=== PATIENT | female | born 1985 | race Caucasian/White ===

== ENCOUNTER 2024-08-09 09:51 | Emergency (ER) | payer BC, SELFPAY ==
[2024-08-09 10:08] VITALS: BP 108/94; PULSE 86; RESP 14; TEMP 36.7; O2SAT 99
--- NOTE | 2024-08-09 10:31 | ED_ITS ---
HPI - Ear Problem General Chief complaint: Ear Stated complaint: left ear pain,drainage,GONZALEZ Time Seen by Provider: 08/09/24 10:40 Source: patient and RN notes reviewed Mode of arrival: ambulatory Limitations: no limitations History of Present Illness HPI Narrative: 39-year-old female presents concern for two-month history of left ear pain, nasal congestion, drainage. Reports she is taking Claritin without relief. MD Complaint: ear pain Related Data Home Medications ?Medication ?Instructions ?Recorded ?Confirmed ?Last Taken ?Type albuterol sulfate 90 mcg/actuation inhalation 08/09/24 Unknown History aerosol inhaler aspirin 81 mg tablet,delayed mg 08/09/24 Unknown History release budesonide-formoterol HFA 160 inhalation 08/09/24 Unknown History mcg-4.5 mcg/actuation aerosol inhaler (Symbicort) irbesartan 150 tablet 08/09/24 Unknown History mg-hydrochlorothiazide 12.5 mg tablet norethindrone (contraceptive) 0.35 mg 08/09/24 Unknown History mg tablet rosuvastatin 10 mg tablet mg 08/09/24 Unknown History Allergies Allergy/AdvReac Type Severity Reaction Status Date / Time Sulfa (Sulfonamide Allergy Unknown Unknown Verified 08/09/24 10:11 Antibiotics) Review of Systems Review of Systems: CONSTITUTIONAL: Denies malaise, chills, sweats, or fever. EYES: Denies visual changes, redness, or discharge. ENT: Reports rhinorrhea, congestion, ear pain CARDIOVASCULAR: Denies chest pain, palpitations, or edema. RESPIRATORY: Denies cough. Denies dyspnea. GASTROINTESTINAL: Denies abdominal pain, nausea, vomiting, diarrhea SKIN: Denies rash or itching. MUSCULOSKELETAL: Denies myalgia. NEUROLOGIC: Denies headache. All systems reviewed & are unremarkable except as noted in HPI and below PMFSH Comments At time of signature, agree with nursing past medical, surgical, social and family history. There is no relevant family history pertinent to the presenting complaint Exam Narrative: GENERAL: Well-appearing, well-nourished, and in no acute distress. HEAD: Normocephalic EYES: PERRLA, conjunctivae clear ENT: Nares clear, turbinates edematous. Mucous membranes moist. TM pearly kelsey with dull light reflex bilaterally; no tragal tenderness. Oropharynx not bimal thematous without lesions. Tonsils not enlarged and without exudate, no drooling, no hoarseness, no trismus, uvula midline. NECK: Supple. No lymphadenopathy CHEST: Clear to auscultation, breath sounds equal. No wheezing, rhonchi, rales, or stridor. No respiratory distress, speaks in full sentences. HEART: Regular rate and rhythm. No murmur heard. SKIN: Warm, dry, no rash. NEURO: Alert and oriented x3. PSYCH: Normal mood and affect Course Course Emergency Course: Patient is aware of diagnosis, understands and agrees to treatment plan. Anticipatory guidance given. Patient agrees to follow-up as directed and is aware of reasons to seek care at the emergency department. Portions of this record may have been created with voice recognition software Level of Care: [facility] Visit Vital Signs Vital signs: Vital Signs Temperature 98.1 F 08/09/24 10:08 Pulse Rate 86 08/09/24 10:08 Respiratory Rate 14 08/09/24 10:08 Blood Pressure 108/94 H 08/09/24 10:08 Pulse Oximetry 99 08/09/24 10:08 Oxygen Delivery Room Air 08/09/24 10:08 Temperature 98.1 F 08/09/24 10:08 Pulse Rate 86 08/09/24 10:08 Respiratory Rate 14 08/09/24 10:08 Blood Pressure 108/94 H 08/09/24 10:08 Pulse Oximetry 99 08/09/24 10:08 Oxygen Delivery Room Air 08/09/24 10:08 Reviewed. Medical Decision Making MDM Narrative Medical decision making narrative: [facility]. History is obtained from patient who is an independent historian and physical exam was performed.? Available medical records were reviewed. ? Exam findings and relevant testing show no acute concerns or changes; patient is non-toxic appearing and is in no distress. Differential diagnosis considered: Villa virus, strep pharyngitis, allergic rhinitis, upper respiratory tract infection, sinusitis, rhinosinusitis, nasopharyngitis. viral pharyngitis, otitis media, otitis externa, otitis effusion, cerumen impaction, foreign body. Exam findings show no acute concerns or changes; patient is non-toxic appearing and is in no distress. Patient is appropriate for outpatient treatment and follow-up. ? Differential diagnosis and treatment plan were discussed with the patient. Patient agrees with discussion and after shared medical decision making agrees with plan of care. All questions were answered to the patient's satisfaction. Patient is appropriate for outpatient treatment and follow-up. Vital Signs Vital Signs: Vital Signs Temperature 98.1 F 08/09/24 10:08 Pulse Rate 86 08/09/24 10:08 Respiratory Rate 14 08/09/24 10:08 Blood Pressure 108/94 H 08/09/24 10:08 Pulse Oximetry 99 08/09/24 10:08 Oxygen Delivery Room Air 08/09/24 10:08 Temperature 98.1 F 08/09/24 10:08 Pulse Rate 86 08/09/24 10:08 Respiratory Rate 14 08/09/24 10:08 Blood Pressure 108/94 H 08/09/24 10:08 Pulse Oximetry 99 08/09/24 10:08 Oxygen Delivery Room Air 08/09/24 10:08 Critical Care Time Critical Care Time Critical Care Time: No Discharge Plan Discharge Clinical Impression: Sinusitis Patient Disposition: Home Condition: Stable Instructions: Antibiotic Form, Sinusitis (ED) Additional Instructions: Symptomatic treatment of a sinus infection aims to relieve symptoms. These treatments do not shorten the duration of illness. Nonprescription pain medications, such as acetaminophen (eg, Tylenol) or ibuprofen (eg, Motrin, Advil), are recommended for pain. Flushing the nose and sinuses with a saline solution several times per day has been proven to decrease pain associated with congestion and shorten the duration of symptoms. Nasal steroids (such as Flonase, 2 sprays in each nostril daily) can help to reduce swelling inside the nose, usually within two to three days. These drugs have few side effects and relieve symptoms in most people. Please follow-up with your primary care doctor in the next 1-2 days. If you cannot follow-up with your primary care doctor please go to the ED for any urgent issues. If you have any worsening of symptoms or any other concerns please go to the ED immediately. Patient Language: [place] Prescriptions: New methylprednisolone [Medrol (Herbie)] 4 mg tablets,dose pack See Rx Instructions .ROUTE .COMPLEX Qty: 21 0RF Rx Instructions: orally per package directions amoxicillin-pot clavulanate 875-125 mg tablet 1 tablet PO Q12H 10 Days Qty: 20 0RF No Action irbesartan-hydrochlorothiazide 150-12.5 mg tablet aspirin 81 mg tablet,delayed release (DR/EC) albuterol sulfate 90 mcg/actuation HFA aerosol inhaler INHALATION norethindrone (contraceptive) 0.35 mg tablet rosuvastatin 10 mg tablet budesonide-formoterol [Symbicort] 160-4.5 mcg/actuation HFA aerosol inhaler INHALATION Follow-up/Referrals: [facility] [Primary Care Provider] - Time of Disposition: 10:52
== END 2024-08-09 11:02 | disposition home or self-care (01) ==
PROVIDERS: Emergency Provider Nurse Practitioner
DX: J32.9 Chronic sinusitis, unspecified (principal); I10 Essential (primary) hypertension; E78.00 Pure hypercholesterolemia, unspecified; J45.909 Unspecified asthma, uncomplicated
CPT/HCPCS: 99203; G0463